=== PATIENT | male | born 1985 | race American Indian/Alaskan Native ===

== ENCOUNTER 2018-01-10 18:46 | Emergency (ER) | payer SELFPAY ==
[2018-01-10] MEDS ORDERED: PEPCID IV ONE ×2 (21:31→22:31)
[2018-01-10] MEDS ORDERED: BENADRYL IV ONE (21:32)
[2018-01-10] MEDS ORDERED: NACL 0.9% 1000 ML 1,000 ML IV ONE (21:33)
--- NOTE | 2018-01-10 21:33 | Emergency Department Report ---
HPI - HPI HPI: 32-year-old male past medical history none presents with complaint of 3-4 days progressively. Persistent and worsening hives. Patient is awake alert and oriented 3. States that he has noticed some slight lip swelling. Patient also complaining of mild throat ache. Patient is speaking in full sentences no audible wheezing or stridor. Hives are noted during exam on patient's upper extremities and upper chest area. Patient states that he is suspicious that he ate canned tuna or mackarel which may have caused this allergy as this has occurred to him in the past. States it has been several years since her last occurred. Patient is complaining of sensation of anterior chest discomfort/ pain. Denies family history of [place] in mother or father. Patient secondarily states that he has had increased urinary frequency for over 1 month. Denies fevers chills abdominal pain and rectal pain nausea or vomiting. Denies any hematuria. <CARMEN NORTH - Last Filed: 01/10/18 22:46> <FELICITA CHAVARRIA - Last Filed: 01/11/18 07:52> - General Chief Complaint: Allergic Reaction Time Seen by Provider: 01/10/18 20:46 ED Past Medical Hx - Past Medical History Previous Medical History?: No - Surgical History Past Surgical History?: No - Social History Smoking Status: Never Smoker Substance Use Type: None <CARMEN NORTH - Last Filed: 01/10/18 22:46> <FELICITA CHAVARRIA - Last Filed: 01/11/18 07:52> - Medications Home Medications: Home Medications Medication Instructions Recorded Confirmed Last Taken Type Famotidine [Pepcid] 20 mg PO BID PRN #30 tablet 01/10/18 Unknown Rx Loratadine [Claritin] 10 mg PO DAILY PRN #30 tablet 01/10/18 Unknown Rx Prednisone [predniSONE 10 mg 10 mg PO .TAPER #1 tab.ds.pk 01/10/18 Unknown Rx (6-Day Pack, 21 Tabs)] ED Review of Systems ROS: Stated complaint: ALLERGIC REACTION ON LIP Other details as noted in HPI Constitutional: denies: chills, fever Eyes: denies: eye pain, eye discharge, vision change ENT: denies: ear pain, throat pain Respiratory: denies: cough, shortness of breath, wheezing Cardiovascular: chest pain. denies: palpitations Endocrine: increased urine (patient states he is urinating frequently as much as 3 times per hour) Gastrointestinal: denies: abdominal pain, nausea, diarrhea Genitourinary: denies: urgency, dysuria Musculoskeletal: denies: back pain, joint swelling, arthralgia Skin: as per HPI, pruritus (patient has active hives). denies: rash, lesions Neurological: denies: headache, weakness, paresthesias Psychiatric: denies: anxiety, depression Hematological/Lymphatic: denies: easy bleeding, easy bruising <CARMEN NORTH - Last Filed: 01/10/18 22:46> ROS: Stated complaint: ALLERGIC REACTION ON LIP Other details as noted in HPI <FELICITA CHAVARRIA - Last Filed: 01/11/18 07:52> Physical Exam - Physical Exam Vital Signs: Vital Signs 01/10/18 18:51 Temperature 98.7 F Pulse Rate 102 H Respiratory 12 Rate Blood Pressure 159/108 O2 Sat by Pulse 99 Oximetry General: General: Visible urticaria on skin on chest back abdomen arms and legs Oriented x 3, normal mood and affect . Ambulating without difficulty. Head: Normocephalic, atraumatic, no visible or palpable masses, depressions, or scaring. No visible significant swelling of lips or visible obvious angioedema Eyes: TANIA, EOMI Pharynx: Uvula is midline oropharynx patent. No tongue swelling Neck: Supple, without lesions, bruits, or adenopathy, thyroid non-enlarged and non-tender Heart: S1-S2 no murmur Lungs: Clear to auscultation no wheezes or stridor I laterally Abdomen: Some hives on superficial abdomen. Bowel sounds normal, no tenderness , organomegaly, masses, or hernia Back: Spine normal without deformity or tenderness, no CVA tenderness Neurologic: CN 2-12 normal. <CARMEN NORTH - Last Filed: 01/10/18 22:46> - Physical Exam Vital Signs: Vital Signs 01/10/18 01/10/18 18:51 23:29 Temperature 98.7 F Pulse Rate 102 H 86 Respiratory 12 16 Rate Blood Pressure 159/108 Blood Pressure 123/89 [Right] O2 Sat by Pulse 99 97 Oximetry <FELICITA CHAVARRIA - Last Filed: 01/11/18 07:52> ED Course Vital Signs 01/10/18 18:51 Temperature 98.7 F Pulse Rate 102 H Respiratory 12 Rate Blood Pressure 159/108 O2 Sat by Pulse 99 Oximetry <CARMEN NORTH J - Last Filed: 01/10/18 22:46> Vital Signs 01/10/18 01/10/18 18:51 23:29 Temperature 98.7 F Pulse Rate 102 H 86 Respiratory 12 16 Rate Blood Pressure 159/108 Blood Pressure 123/89 [Right] O2 Sat by Pulse 99 97 Oximetry - Reevaluation(s) Reevaluation #2: 01/10/18 23:49 Review of lab work showed normal CBC, chemistry and troponin. Patient d-dimer is elevated so therefore CTA chest ordered. This is explained to patient. Reevaluation #3: 01/11/18 01:00 Patient is stable and hives are subsided. Minimal itching. No angioedema. Patient under out to CT scan. Reevaluation #4: 01/11/18 01:53 Ratio is stable and rash has subsided. No itching at present. CTA came back with no evidence of pulmonary embolus and chest x-rays normal. Cells was related to patient to patient's and he is stable voice understanding. <FELICITA CHAVARRIA A - Last Filed: 01/11/18 07:52> ED Medical Decision Making - Medical Decision Making A/P: Urticaria, chest discomfort, polyuria 1- 2- 3- 4- <CARMEN NORTH - Last Filed: 01/10/18 22:46> - Lab Data Result diagrams: 01/10/18 23:06 01/10/18 23:06 Lab Results 01/10/18 01/10/18 01/10/18 Range/Units 22:40 23:06 23:06 WBC 12.4 H (4.5-11.0) K/mm3 RBC 4.88 (3.65-5.03) M/mm3 Hgb 14.3 (11.8-15.2) gm/dl Hct 42.9 (35.5-45.6) % MCV 88 (84-94) fl MCH 29 (28-32) pg MCHC 33 (32-34) % RDW 13.2 (13.2-15.2) % Plt Count 312 (140-440) K/mm3 Lymph % (Auto) 17.7 (13.4-35.0) % [place] % (Auto) 2.6 (0.0-7.3) % Eos % (Auto) 0.6 (0.0-4.3) % Baso % (Auto) 0.1 (0.0-1.8) % Lymph # 2.2 (1.2-5.4) K/mm3 [place] # 0.3 (0.0-0.8) K/mm3 Eos # 0.1 (0.0-0.4) K/mm3 Baso # 0.0 (0.0-0.1) K/mm3 Seg Neutrophils % 79.0 H (40.0-70.0) % Seg Neutrophils # 9.8 H (1.8-7.7) K/mm3 D-Dimer (0-234) ng/mlDDU Sodium 140 (137-145) mmol/L Potassium 4.4 (3.6-5.0) mmol/L Chloride 100.1 (98-107) mmol/L Carbon Dioxide 27 (22-30) mmol/L Anion Gap 17 mmol/L BUN 12 (9-20) mg/dL Creatinine 0.9 (0.8-1.5) mg/dL Estimated GFR > 60 ml/min BUN/Creatinine Ratio 13 % Glucose 130 H (75-100) mg/dL Calcium 9.4 (8.4-10.2) mg/dL Total Creatine Kinase (55-170) units/L Troponin T (0.00-0.029) ng/mL Urine Color Yellow (Yellow) Urine Turbidity Clear (Clear) Urine pH 7.0 (5.0-7.0) Ur Specific [place] 1.011 (1.003-1.030) Urine Protein <15 mg/dl (Negative) mg/dL Urine Glucose (UA) Neg (Negative) mg/dL Urine Ketones Neg (Negative) mg/dL Urine Blood Neg (Negative) Urine Nitrite Neg (Negative) Urine Bilirubin Neg (Negative) Urine Urobilinogen < 2.0 (<2.0) mg/dL Ur Leukocyte Esterase Neg (Negative) Urine WBC (Auto) < 1.0 (0.0-6.0) /HPF Urine RBC (Auto) 2.0 (0.0-6.0) /HPF 07/22/18 07/22/18 07/22/18 Range/Units 23:06 23:06 23:06 WBC (4.5-11.0) K/mm3 RBC (3.65-5.03) M/mm3 Hgb (11.8-15.2) gm/dl Hct (35.5-45.6) % MCV (84-94) fl MCH (28-32) pg MCHC (32-34) % RDW (13.2-15.2) % Plt Count (140-440) K/mm3 Lymph % (Auto) (13.4-35.0) % [place] % (Auto) (0.0-7.3) % Eos % (Auto) (0.0-4.3) % Baso % (Auto) (0.0-1.8) % Lymph # (1.2-5.4) K/mm3 [place] # (0.0-0.8) K/mm3 Eos # (0.0-0.4) K/mm3 Baso # (0.0-0.1) K/mm3 Seg Neutrophils % (40.0-70.0) % Seg Neutrophils # (1.8-7.7) K/mm3 D-Dimer 1225.31 H (0-234) ng/mlDDU Sodium (137-145) mmol/L Potassium (3.6-5.0) mmol/L Chloride (98-107) mmol/L Carbon Dioxide (22-30) mmol/L Anion Gap mmol/L BUN (9-20) mg/dL Creatinine (0.8-1.5) mg/dL Estimated GFR ml/min BUN/Creatinine Ratio % Glucose (75-100) mg/dL Calcium (8.4-10.2) mg/dL Total Creatine Kinase 123 (55-170) units/L Troponin T < 0.010 (0.00-0.029) ng/mL Urine Color (Yellow) Urine Turbidity (Clear) Urine pH (5.0-7.0) Ur Specific [place] (1.003-1.030) Urine Protein (Negative) mg/dL Urine Glucose (UA) (Negative) mg/dL Urine Ketones (Negative) mg/dL Urine Blood (Negative) Urine Nitrite (Negative) Urine Bilirubin (Negative) Urine Urobilinogen (<2.0) mg/dL Ur Leukocyte Esterase (Negative) Urine WBC (Auto) (0.0-6.0) /HPF Urine RBC (Auto) (0.0-6.0) /HPF - Radiology Data Radiology results: report reviewed Chest x-ray two-view and CTA of the chest dictated by radiologist and reports reviewed by myself. Referred to reports below Patient: ALEJANDRO HUTTON MR#: [id number] : 1985 Acct:[id number] Age/Sex: 32 / M ADM Date: 01/10/18 Loc: ED Attending Dr: Ordering Physician: FARRAH GUTIERREZ Date of Service: 01/10/18 Procedure(s): XR chest routine 2V Accession Number(s): [id number] cc: FARRAH GUTIERREZ Fluoro Time In Minutes: FINAL REPORT PROCEDURE: XR CHEST ROUTINE 2V TECHNIQUE: PA and lateral chest radiographs were obtained. CPT 21748 HISTORY: chest discomfort COMPARISON: No prior studies are available for comparison. FINDINGS: Heart: Normal. Mediastinum/Vessels: Normal. Lungs/Pleural space: Normal. Bony thorax: No acute osseous abnormality. Other: IMPRESSION: Normal examination. Transcribed By: [facility] [place]ictated By: JANETH RAMIREZ Electronically Authenticated By: JANETH RAMIREZ Signed Date/Time: 01/10/182307 DD/ 07 TD/TT: 01/10/182307 Patient: ALEJANDRO HUTTON MR#: [id number] : 1985 Acct:[id number] Age/Sex: 32 / M ADM Date: 01/10/18 Loc: ED Attending Dr: Ordering Physician: FARRAH JEONG Date of Service: 01/11/18 Procedure(s): CT angio chest Accession Number(s): [id number] cc: FARRAH JEONG FINAL REPORT EXAM: CT ANGIO CHEST HISTORY: chest pain and shortness of breath TECHNIQUE: A CT angiogram was performed following the intravenous injection of 100 cc of Omnipaque 350. Rotational, sagittal, and coronal MIP reconstructions were reviewed. FINDINGS: There is no evidence of pulmonary embolus or aortic dissection. The thoracic aorta is normal in caliber. The heart size is normal. Pericardial fluid is not seen. There is no evidence of adenopathy. The lungs are clear. There is a small hiatal hernia. The adrenal glands appear normal. The skeletal structures are well-maintained. At the thoracic inlet the thyroid gland appears normal. IMPRESSION: No evidence of pulmonary embolus, aortic dissection, or vascular congestion. No acute process in the chest Transcribed By: RB Dictated By: UCHE JOSHI MD Electronically Authenticated By: UCHE JOSHI MD Signed Date/Time: 01/11/18144 DD/ 4 TD/TT: 01/11/18144 - Differential Diagnosis PE, PNA, extrinsic versus intrinsic hives, ACS versus inflammation, URI <FELICITA CHAVARRIA - Last Filed: 01/11/18 07:52> Critical care attestation.: If time is entered above; I have spent that time in minutes in the direct care of this critically ill patient, excluding procedure time. <CARMEN NORTH - Last Filed: 01/10/18 22:46> Critical care attestation.: If time is entered above; I have spent that time in minutes in the direct care of this critically ill patient, excluding procedure time. <FELICITA CHAVARRIA - Last Filed: 01/11/18 07:52> ED Disposition <CARMEN NORTH - Last Filed: 01/10/18 22:46> Is pt being admited?: No Does the pt Need Aspirin: No <FELICITA CHAVARRIA - Last Filed: 01/11/18 07:52> Clinical Impression: Hives, Atypical chest pain, Shortness of breath Disposition: - TO HOME OR SELFCARE Condition: Stable Instructions: Chest Pain (ED), Urticaria (ED) Additional Instructions: Please follow up with your primary care physician tomorrow and if he do not have a primary care physician follow-up at this outside [facility] A few symptoms recur please return to the Hospital [facility] Take medication as prescribed Prescriptions: Famotidine [Pepcid] 20 mg PO BID PRN #30 tablet PRN Reason: Indigestion Loratadine [Claritin] 10 mg PO DAILY PRN #30 tablet PRN Reason: Itching Prednisone [predniSONE 10 mg (6-Day Pack, 21 Tabs)] 10 mg PO .TAPER #1 tab.ds.pk Referrals: [facility] [Provider Group] - 01/11/18 [facility] [Provider Group] - 2-3 Days Forms: Work/School Release Form(ED)
[2018-01-10] MEDS ORDERED: ALUM-MAG HYDROX-SIMETH 200-200-20MG/5ML PO ONE (22:31)
[2018-01-10] MEDS ORDERED: LIDOCAINE VISCOUS 2% MM NR (22:45)
[2018-01-10 23:12] LABS: Bilirubin,Urine NEG (Negative); Blood,Urine NEG (Negative); Color,Urine Yellow (Yellow); Protein,Urine <15 mg/dL mg/dL (Negative); Urobilinogen,Urine < 2.0 mg/dL (<2.0)
--- NOTE | 2018-01-10 23:13 | XRay Report ---
FINAL REPORT PROCEDURE: XR CHEST ROUTINE 2V TECHNIQUE: PA and lateral chest radiographs were obtained. CPT 41897 HISTORY: chest discomfort COMPARISON: No prior studies are available for comparison. FINDINGS: Heart: Normal. Mediastinum/Vessels: Normal. Lungs/Pleural space: Normal. Bony thorax: No acute osseous abnormality. Other: IMPRESSION: Normal examination.
[2018-01-10 23:21] LABS: Basophils % (Auto) 0.1 % (0.0-1.8); Eosinophils # (Auto) 0.1 K/mm3 (0.0-0.4); Eosinophils % (Auto) 0.6 % (0.0-4.3); Hematocrit 42.9 % (35.5-45.6); Hemoglobin 14.3 gm/dl (11.8-15.2); Lymphocytes # (Auto) 2.2 K/mm3 (1.2-5.4); Lymphocytes % (Auto) 17.7 % (13.4-35.0); Mean Corpuscular HGB Conc 33 % (32-34); Mean Corpuscular Hemoglobin 29 pg (28-32); Mean Corpuscular Volume 88 fl (84-94); Monocytes # (Auto) 0.3 K/mm3 (0.0-0.8); Monocytes % (Auto) 2.6 % (0.0-7.3); Platelet Count 312 K/mm3 (140-440); Red Blood Count 4.88 M/mm3 (3.65-5.03); Red Cell Distribution Width 13.2 % (13.2-15.2)
[2018-01-10 23:30] VITALS: BP 123/89
[2018-01-10 23:37] LABS: WBC,Urine < 1.0 /HPF (0.0-6.0)
[2018-01-10 23:42] LABS: BUN/Creatinine Ratio 13; Blood Urea Nitrogen 12 mg/dL (9-20); Calcium 9.4 mg/dL (8.4-10.2); Hemolysis Index 3
--- NOTE | 2018-01-11 01:50 | Cat Scan Report ---
FINAL REPORT EXAM: CT ANGIO CHEST HISTORY: chest pain and shortness of breath TECHNIQUE: A CT angiogram was performed following the intravenous injection of 100 cc of Omnipaque 350. Rotational, sagittal, and coronal MIP reconstructions were reviewed. FINDINGS: There is no evidence of pulmonary embolus or aortic dissection. The thoracic aorta is normal in caliber. The heart size is normal. Pericardial fluid is not seen. There is no evidence of adenopathy. The lungs are clear. There is a small hiatal hernia. The adrenal glands appear normal. The skeletal structures are well-maintained. At the thoracic inlet the thyroid gland appears normal. IMPRESSION: No evidence of pulmonary embolus, aortic dissection, or vascular congestion. No acute process in the chest
== END 2018-01-11 02:09 | disposition home or self-care (01) ==
LOC: ED 18:46
DX: L50.9 Urticaria, unspecified (principal); R07.89 Other chest pain; R07.0 Pain in throat; R06.02 Shortness of breath; R35.0 Frequency of micturition
CPT/HCPCS: 36415; 71046; 71275; 80048; 81001; 82550; 84484; 85025; 85379; 93005; 93010; 96374; 96375; 96376; 99284; J1200; J2930; J7030; Q9967; 96361